=== PATIENT | female | born 1995 | race Caucasian/White ===

== ENCOUNTER 2019-08-12 21:06 | Emergency (ER) | payer MEDICAID ==
[2019-08-12] MEDS ORDERED: Alum Hydrox/Mag Hydrox/Simeth 30 ML, Lidocaine 2% 15 ML PO STA ×2 (21:48)
--- NOTE | 2019-08-12 21:53 | EDM.PDOC ---
ED HPI GENERAL MEDICAL PROBLEM - General Chief Complaint: Chest Pain Stated Complaint: CHEST PAINS, SOB Time Seen by Provider: 08/12/19 21:32 Source of Information: Reports: Patient, Other (Friend of family) History Limitations: Reports: No Limitations - History of Present Illness INITIAL COMMENTS - FREE TEXT/NARRATIVE: Ms. Hernández is a very pleasant 24-year-old woman who states that she has been experiencing recurrent retrosternal chest pain, sharp in character, about once a week since 2010. As a result, she wore a Holter monitor for 2 months in 2018 in [place], then also underwent a 48-hour Holter monitor this past July here in [place]. According the patient, she was found to have episodic sinus tachycardia, and was started on Toprol-XL 25 mg daily. The patient now presents to the ED stating that she developed the same retrosternal chest pain, sudden onset, around 20:10 this evening. She states that her current pain is more severe than usual. She states that it is a pain, not a discomfort. It has been waxing and waning; she notices that the pain improved after she removed her bra, and if she is standing. The pain is made worse if she bends forward or sits. She reports slight shortness of breath since 20:40. No associated nausea, diaphoresis, or sense of impending doom. The patient states that she has had an occasional cough, lightheadedness, and nausea, but she denies recent fever, chills, emesis, constipation, diarrhea, abdominal pain, urinary symptoms, recent weight gain or weight loss, recent bloody bowel movements or black bowel movements, recent joint aches, headaches, or rashes. It is noted that the patient's oxygen saturation is 100% on room air. Her vital signs are otherwise within normal limits; she is not tachycardic The patient's PCP is LEONEL Heaton. She has not received an influenza vaccine this season, but agreed to receive one here. Middle Chest Pain Score (Numeric/FACES): 8 - Related Data Allergies Allergy/AdvReac Type Severity Reaction Status Date / Time adhesive Allergy Rash Verified 08/12/19 21:31 bacitracin Allergy Rash Verified 08/12/19 21:31 [From Neosporin ([id number])] desmopressin Allergy Rash Verified 08/12/19 21:31 hydroxyzine Allergy Hallucinati Verified 08/12/19 21:31 ons latex Allergy Rash Verified 08/12/19 21:31 neomycin Allergy Rash Verified 08/12/19 21:31 [From Neosporin ([id number])] polymyxin B Allergy Rash Verified 08/12/19 21:31 [From Neosporin ([id number])] Home Meds: Home Meds Amitriptyline HCl 75 mg PO DAILY 08/12/19 [History] Cholecalciferol (Vitamin D3) [Vitamin D] 1,000 unit PO DAILY 08/12/19 [History] Loratadine [Claritin] 10 mg PO DAILY 08/12/19 [History] Magnesium 250 mg PO DAILY 08/12/19 [History] Metoprolol Succinate [Toprol XL] 25 mg PO DAILY 08/12/19 [History] [place]-3/DHA/Epa/Fish Oil [Fish Oil 1,000 mg Softgel] 1 each PO DAILY 08/12/19 [ History] metFORMIN [Glucophage XR] 250 mg PO DAILY 08/12/19 [History] Past Medical History HEENT History: Reports: Allergic Rhinitis Cardiovascular History: Reports: High Cholesterol Respiratory History: Reports: Asthma (exercise-induced, suspected, not tested) CHILD SUPPORT AGENT History: Reports: Polycystic Ovaries Musculoskeletal History: Reports: Other (See Below) ([place]-Schlatter) Psychiatric History: Reports: ADHD, Bipolar, Other (See Below) (Insomnia) Endocrine/Metabolic History: Reports: Vitamin D Deficiency Social & Family History - Tobacco Use Smoking Status *Q: Never Smoker - Caffeine Use Caffeine Use: Reports: Coffee - Alcohol Use Alcohol Use History: Yes Alcohol Use Frequency: Rarely - Recreational Drug Use Recreational Drug Use: Yes Drug Use in Last 12 Months: Yes Recreational Drug Type: Reports: Marijuana/Hashish (smokes nightly) - Living Situation & Occupation Living situation: Reports: Single, with Family Occupation: Student ([employer]) ED ROS GENERAL - Review of Systems Review Of Systems: Comprehensive ROS is negative, except as noted in HPI. ED EXAM, GENERAL - Physical Exam Exam: See Below Exam Limited By: No Limitations General Appearance: Alert, Anxious, Thin Eye Exam: Bilateral Eye: EOMI, Normal Inspection Ears: Normal External Exam, Hearing Grossly Normal Nose: Normal Inspection Throat/Mouth: Normal Inspection, Normal Lips, Normal Voice, No Airway Compromise Head: Atraumatic, Normocephalic Neck: Normal Inspection, Full Range of Motion Respiratory/Chest: No Respiratory Distress, Lungs Clear, Normal Breath Sounds, No Accessory Muscle Use, Chest Non-Tender (pain improved with palpation of the sternum) Cardiovascular: Normal Peripheral Pulses, Regular Rate, Rhythm, No Edema, No Gallop, No JVD, No Murmur, No Rub Peripheral Pulses: 4+: Radial (L), Radial (R) GI/Abdominal: Normal Bowel Sounds, Soft, Non-Tender (including in the epigastrium), No Organomegaly, No Distention, No Abnormal Bruit, No Mass (Female) Exam: Normal Bimanual Exam, Deferred Rectal (Female) Exam: Deferred Back Exam: Normal Inspection, Full Range of Motion, NT Extremities: Normal Inspection, Normal Range of Motion, No Pedal Edema, Normal Capillary Refill Neurological: Alert, Oriented, Normal Cognition, No Motor/Sensory Deficits Psychiatric: Anxious Skin Exam: Warm, Dry, Intact, Normal Color, No Rash Course - Vital Signs Last Recorded V/S: Last Vital Signs Temp 36.7 C 08/12/19 21:25 Pulse 98 08/12/19 21:25 Resp 14 08/12/19 21:25 BP 119/82 08/12/19 21:25 Pulse Ox 100 08/12/19 21:25 - Orders/Labs/Meds Orders: Active Orders 24 hr Category Date Time Status Influenza Vaccine Charge [RC] .DISCHARGE Care 08/12/19 23:17 Active Meds: Medications Discontinued Medications Generic Name Dose Route Start Last Admin Trade Name Freq PRN Reason Stop Dose Admin Al Hydroxide/Mg Hydroxide 30 0 ml 08/12/19 21:48 08/12/19 21:50 ml/ Lidocaine HCl 15 ml PO 08/12/19 21:49 45 ml ONETIME STA Administration Famotidine 20 mg 08/12/19 23:14 Pepcid PO 08/12/19 23:15 ONETIME ONE Influenza Virus Vaccine 1 each 08/12/19 23:17 Pharmacy To Dose - Influenza Vaccine IM 08/12/19 23:18 ONETIME ONE Influenza Virus Vaccine 60 mcg 08/12/19 23:30 08/12/19 23:21 Fluzone Quad Syringe IM 08/12/19 23:31 60 mcg .ONCE ONE Administration Influenza Virus Vaccine Confirm 08/12/19 23:20 Fluzone Quad [id number] Syringe Administered 08/12/19 23:21 Dose 60 mcg .ROUTE .[facility] ONE - Re-Assessments/Exams Free Text/Narrative Re-Assessment/Exam: 08/12/19 21:50 The patient's history and physical exam are most consistent with her pain being due to GERD. I have ordered a GI cocktail to see if that helps. 08/12/19 23:14 The patient states that the GI cocktail helped only "a little". Nevertheless, I suspect that her symptoms are due to GERD. She will be started on famotidine, and I will recommend that she start taking one tablet once a day. If her symptoms persist, she should increase her dosage to one tablet twice a day. If her symptoms persist despite taking one tablet of famotidine twice a day, the patient may need to start on a PPI, but under the circumstances, I would want her to undergo an EGD. The patient's oxygen saturation has remained at 100% while on room air during her entire ED visit. I suspect that the patient is suffering from some underlying anxiety, which may also be responsible for her tachycardia. I recommended that the patient follow-up with her PCP to discuss treatment options for anxiety. The patient received that recommendation well, stating that she had previously discussed the issue with her PCP, but that nothing was prescribed. The patient will receive an influenza vaccine prior to discharge. Departure - Departure Time of Disposition: 23:16 Disposition: Home, Self-Care 01 Condition: Good Clinical Impression: GERD (gastroesophageal reflux disease), Anxiety - Discharge Information *PRESCRIPTION DRUG MONITORING PROGRAM REVIEWED*: Not Applicable *COPY OF PRESCRIPTION DRUG MONITORING REPORT IN PATIENT CLEMENCIA: Not Applicable Instructions: Heartburn, [id number] Referrals: Ingrid Montes De Oca PA-C [Primary Care Provider] - Forms: ED Department Discharge Additional Instructions: You were seen in the emergency room for recurrent central chest pain and slight shortness of breath. Based on your history and physical examination, your chest pain is most likely due to GERD. You have been started on the antacid medicine famotidine (Pepcid). Famotidine is available [id number], and generic is just as good as brand name. We recommend that you take one tablet a famotidine once a day. If your chest pain symptoms persist despite taking famotidine once a day, you may increase the dose to one tablet of famotidine twice a day. If your symptoms persist despite taking famotidine twice a day, you may need to which to a stronger antacid, such as a proton pump inhibitor, but if that were the case, we recommend that you undergo an EGD (scope of the stomach). It was noticed that your oxygen saturation was 100% on room air, suggestive of hyperventilation. You may be suffering from untreated anxiety, which may be contributing to your tachycardia. We recommend that you follow-up with your PCP to discuss treatment options for anxiety. If any other problems, please do not hesitate to return to the ER. *You received an influenza vaccine during your ER visit.* - My Orders Last 24 Hours: My Active Orders 08/12/19 23:17 Influenza Vaccine Charge [RC] .DISCHARGE - Assessment/Plan Last 24 Hours: My Active Orders 08/12/19 23:17 Influenza Vaccine Charge [RC] .DISCHARGE
[2019-08-12] MEDS ORDERED: Famotidine 20 MG Tab PO ONE (23:14)
[2019-08-12] MEDS ORDERED: FLU Vacc QS2019-20(6MOS+)/PF 60 MCG/0.5 ML SYRINGE ONE (23:20)
[2019-08-12] MEDS ORDERED: FLU Vacc QS2019-20(6MOS+)/PF 60 MCG/0.5 ML SYRINGE IM ONE (23:30)
== END 2019-08-12 23:52 | disposition home or self-care (01) ==
LOC: JD.ED 21:06
DX: K21.9 Gastro-esophageal reflux disease without esophagitis (principal); F41.9 Anxiety disorder, unspecified; Z91.048 Other nonmedicinal substance allergy status; Z88.1 Allergy status to other antibiotic agents; Z91.040 Latex allergy status; Z88.8 Allergy status to other drugs, medicaments and biological substances; Z88.3 Allergy status to other anti-infective agents; Z23 Encounter for immunization
CPT/HCPCS: 90471; 90686; 99284; A9270; 99283; G0008

== ENCOUNTER 2019-08-24 13:43 | Emergency (ER) | payer MEDICAID, OTHER ==
[2019-08-24] MEDS ORDERED: Sodium Chloride 0.9% 10 ML Syringe FLUSH PRN (13:55)
[2019-08-24] MEDS ORDERED: Sodium Chloride 0.9% 1,000 ML IV ONE (13:55)
[2019-08-24] MEDS ORDERED: Metoclopramide 10 MG/2 ML SDV IVPUSH ONE (13:55)
[2019-08-24] MEDS ORDERED: diphenhydrAMINE 50 MG/ML SDV IVPUSH ONE (13:55)
--- NOTE | 2019-08-24 14:01 | EDM.PDOC ---
ED HPI GENERAL MEDICAL PROBLEM - General Chief Complaint: Headache Stated Complaint: HEADACHE/NECK PAIN Time Seen by Provider: 08/24/19 13:49 Source of Information: Reports: Patient History Limitations: Reports: No Limitations - History of Present Illness INITIAL COMMENTS - FREE TEXT/NARRATIVE: Patient is an unfortunate 24-year-old female who presents emergency Department today with complaint of headache. Patient reports onset of health approximately one week ago when she started getting a dull throbbing frontal headache. Patient reports that this headache has not been alleviated by any over -the-counter medication she's been taking ibuprofen at home with no improvement in symptoms. Positive nausea positive photophobia and no vomiting. Patient reports she was seen in urgent care today and was sent to the emergency department for evaluation. I reviewed the urgent care notes patient had labs drawn there which showed no clinically significant abnormalities and the patient was sent here to rule out meningitis. Patient has no nuchal rigidity no fever. - Related Data Allergies Allergy/AdvReac Type Severity Reaction Status Date / Time adhesive Allergy Rash Verified 08/12/19 21:31 bacitracin Allergy Rash Verified 08/12/19 21:31 [From Neosporin ([id number])] desmopressin Allergy Rash Verified 08/12/19 21:31 hydroxyzine Allergy Hallucinati Verified 08/12/19 21:31 ons latex Allergy Rash Verified 08/12/19 21:31 neomycin Allergy Rash Verified 08/12/19 21:31 [From Neosporin ([id number]-[id number])] polymyxin B Allergy Rash Verified 08/12/19 21:31 [From Neosporin ([id number]-[id number])] Home Meds: Home Meds Amitriptyline HCl 75 mg PO DAILY 08/12/19 [History] Cholecalciferol (Vitamin D3) [Vitamin D] 1,000 unit PO DAILY 08/12/19 [History] Loratadine [Claritin] 10 mg PO DAILY 08/12/19 [History] Magnesium 250 mg PO DAILY 08/12/19 [History] Metoprolol Succinate [Toprol XL] 25 mg PO DAILY 08/12/19 [History] [place]-3/DHA/Epa/Fish Oil [Fish Oil 1,000 mg Softgel] 1 each PO DAILY 08/12/19 [ History] metFORMIN [Glucophage XR] 250 mg PO DAILY 08/12/19 [History] Past Medical History HEENT History: Reports: Allergic Rhinitis Cardiovascular History: Reports: High Cholesterol, Other (See Below) Other Cardiovascular History: high heart rate Respiratory History: Reports: Asthma STRATEGIC BUSINESS DEVELOPMENT History: Reports: Polycystic Ovaries Musculoskeletal History: Reports: Other (See Below) Neurological History: Reports: Head Trauma, Other (See Below) Other Neuro History: TBI Psychiatric History: Reports: ADHD, Bipolar, Other (See Below) Endocrine/Metabolic History: Reports: Vitamin D Deficiency Social & Family History - Tobacco Use Smoking Status *Q: Never Smoker Second Hand Smoke Exposure: No - Caffeine Use Caffeine Use: Reports: None - Recreational Drug Use Recreational Drug Use: Yes Drug Use in Last 12 Months: Yes Recreational Drug Type: Reports: Marijuana/Hashish Recreational Drug Use Frequency: Daily - Living Situation & Occupation Living situation: Reports: Single, with Family Occupation: Student ([employer]) ED ROS GENERAL - Review of Systems Review Of Systems: See Below Constitutional: Denies: Fever, Chills, Night Sweats HEENT: Denies: Rhinitis Respiratory: Denies: Cough GI/Abdominal: Reports: Nausea. Denies: Hematemesis, Hematochezia, Vomiting Neurological: Reports: Headache - Physical Exam Exam: See Below Exam Limited By: No Limitations General Appearance: Alert, WD/WN, Mild Distress Eye Exam: Bilateral Eye: Abnormal Pupil, PERRL Ears: Normal External Exam, Normal Canal, Hearing Grossly Normal, Normal TMs Nose: Normal Inspection, Normal Mucosa, No Blood Throat/Mouth: Normal Inspection, Normal Lips, Normal Teeth, Normal Gums, Normal Oropharynx, Normal Voice, No Airway Compromise Head Exam: Atraumatic Neck: Normal Inspection, Supple, Non-Tender, Full Range of Motion, Other (No nuchal rigidity) Respiratory/Chest: No Respiratory Distress, Lungs Clear, Normal Breath Sounds, No Accessory Muscle Use, Chest Non-Tender Cardiovascular: Normal Peripheral Pulses, No Edema, No Gallop, No JVD, No Murmur , No Rub, Tachycardia GI/Abdominal: Normal Bowel Sounds, Soft, Non-Tender, No Organomegaly, No Distention, No Abnormal Bruit, No Mass Neuro Exam (Abbreviated): Alert, Oriented, CN II-XII Intact, Normal Cognition, Normal Gait, Normal Reflexes, No Motor/Sensory Deficits Extremities: Normal Inspection, Normal Range of Motion, Non-Tender, No Pedal Edema, Normal Capillary Refill Skin Exam: Warm, Dry, No Rash Course - Vital Signs Last Recorded V/S: Last Vital Signs Temp 97.1 F 08/24/19 13:48 Pulse 105 H 08/24/19 13:48 Resp 18 08/24/19 13:48 BP 95/71 08/24/19 13:48 Pulse Ox 100 08/24/19 13:48 - Orders/Labs/Meds Orders: Active Orders 24 hr Category Date Time Status Head wo Cont [CT] Stat Exams 08/24/19 13:55 Taken Sodium Chloride 0.9% [Saline Flush] Med 08/24/19 13:55 Active 10 ml FLUSH ASDIRECTED PRN Saline Lock Insert [OM.PC] Stat Oth 08/24/19 13:55 Ordered Medication Orders Sodium Chloride (Saline Flush) 10 ml FLUSH ASDIRECTED PRN PRN Reason: Keep Vein Open Last Admin: 08/24/19 14:10 Dose: 10 ml Meds: Medications Generic Name Dose Route Start Last Admin Trade Name Freq PRN Reason Stop Dose Admin Sodium Chloride 10 ml 08/24/19 13:55 08/24/19 14:10 Saline Flush FLUSH 10 ml ASDIRECTED PRN Administration Keep Vein Open Discontinued Medications Generic Name Dose Route Start Last Admin Trade Name Freq PRN Reason Stop Dose Admin Diphenhydramine HCl 25 mg 08/24/19 13:55 08/24/19 14:08 Benadryl IVPUSH 08/24/19 13:56 25 mg ONETIME ONE Administration Sodium Chloride 1,000 mls @ 1,000 mls/hr 08/24/19 13:55 08/24/19 14:07 Normal Saline IV 08/24/19 14:54 1,000 mls/hr ONETIME ONE Administration Metoclopramide HCl 10 mg 08/24/19 13:55 08/24/19 14:07 Reglan IVPUSH 08/24/19 13:56 10 mg ONETIME ONE Administration - Re-Assessments/Exams Free Text/Narrative Re-Assessment/Exam: 08/24/19 15:14 CT had "impression: No acute intracranial pathology." Free Text/Narrative Re-Assessment/Exam: 08/24/19 15:16 Pain has resolved will discharge to home Departure - Departure Time of Disposition: 15:16 Disposition: Home, Self-Care 01 Clinical Impression: Migraine - Discharge Information Referrals: Ingrid Montes De Oca PA-C [Primary Care Provider] - Forms: ED Department Discharge Additional Instructions: Home, rest in a dark quiet room, return as needed for worsening condition Sepsis Event Note - Evaluation Sepsis Screening Result: No Definite Risk - Focused Exam Vital Signs: Vital Signs Temp Pulse Resp BP Pulse Ox 08/24/19 13:48 97.1 F 105 H 18 95/71 100 Date Exam was Performed: 08/24/19 Time Exam was Performed: 15:14 - My Orders Last 24 Hours: My Active Orders 08/24/19 13:55 Head wo Cont [CT] Stat Sodium Chloride 0.9% [Saline Flush] 10 ml FLUSH ASDIRECTED PRN Saline Lock Insert [OM.PC] Stat - Assessment/Plan Last 24 Hours: My Active Orders 08/24/19 13:55 Head wo Cont [CT] Stat Sodium Chloride 0.9% [Saline Flush] 10 ml FLUSH ASDIRECTED PRN Saline Lock Insert [OM.PC] Stat
--- NOTE | 2019-08-26 09:16 | CT ---
Head CT Technique: Multiple axial sections through the brain were obtained. Intravenous contrast was not utilized. Comparison: No prior intracranial imaging. Findings: Ventricles along with basal cisterns and sulci over the convexities appear within normal limits for the patient's age. No abnormal parenchymal densities are seen. No evidence of intracranial hemorrhage. No midline shift or mass effect is seen. Mastoid sinuses are clear. Visualized paranasal sinuses are clear. No acute calvarial abnormality is identified. Impression: 1. Nothing acute is appreciated on noncontrast head CT exam. Diagnostic code #2 This report was dictated in [place] Standard Time I agree with preliminary report issued by [facility] ([facility] report finalized on 08/24/19, 3:44 PM Central Time)
== END 2019-08-24 15:31 | disposition home or self-care (01) ==
LOC: JD.ED 13:43
DX: G43.909 Migraine, unspecified, not intractable, without status migrainosus (principal); E28.2 Polycystic ovarian syndrome; Z79.84 Long term (current) use of oral hypoglycemic drugs; Z79.899 Other long term (current) drug therapy; Z91.040 Latex allergy status; Z91.09 Other allergy status, other than to drugs and biological substances; Z88.8 Allergy status to other drugs, medicaments and biological substances
CPT/HCPCS: 70450; 96361; 96374; 96375; 99284; J1200; J2765; J7030; 99283

== ENCOUNTER 2020-05-06 19:39 | Emergency (ER) | payer MEDICAID ==
[2020-05-06] MEDS ORDERED: Ondansetron 4 MG/2 ML SDV IVPUSH ONE (20:19)
[2020-05-06] MEDS ORDERED: methylPREDNISolone Sodium Succinate 125 MG/2 ML SDV IVPUSH ONE (20:19)
--- NOTE | 2020-05-06 20:30 | EDM.PDOC ---
ED HPI GENERAL MEDICAL PROBLEM - General Chief Complaint: Neuro Symptoms/Deficits Stated Complaint: dizzy nausea Time Seen by Provider: 05/06/20 20:00 Source of Information: Reports: Patient, RN Notes Reviewed - History of Present Illness INITIAL COMMENTS - FREE TEXT/NARRATIVE: 25 yr old female with onset of vertigo this afternoon about 5 hrs ago. She has been feeling fine earlier today. She has had episodes of vertigo over the past couple of yrs but less severe. No [place], ear pain, sinus problems, recent cough, fever or chills. It feels better to lie still, worse to move. Nausea but no vomiting. - Related Data Allergies Allergy/AdvReac Type Severity Reaction Status Date / Time adhesive Allergy Rash Verified 05/06/20 20:04 bacitracin Allergy Rash Verified 05/06/20 20:04 [From Neosporin ([id number])] desmopressin Allergy Rash Verified 05/06/20 20:04 hydroxyzine Allergy Hallucinati Verified 05/06/20 20:04 ons latex Allergy Rash Verified 05/06/20 20:04 neomycin Allergy Rash Verified 05/06/20 20:04 [From Neosporin ([id number])] polymyxin B Allergy Rash Verified 05/06/20 20:04 [From Neosporin ([id number])] Home Meds: Home Meds Amitriptyline HCl 75 mg PO DAILY 08/12/19 [History] Cholecalciferol (Vitamin D3) [Vitamin D] 1,000 unit PO DAILY 08/12/19 [History] Loratadine [Claritin] 10 mg PO DAILY 08/12/19 [History] Magnesium 250 mg PO DAILY 08/12/19 [History] Metoprolol Succinate [Toprol XL] 25 mg PO DAILY 08/12/19 [History] [place]-3/DHA/Epa/Fish Oil [Fish Oil 1,000 mg Softgel] 1 each PO DAILY 08/12/19 [History] metFORMIN [Glucophage XR] 250 mg PO DAILY 08/12/19 [History] Meclizine [Antivert] 12.5 mg PO BID #10 tab 05/06/20 [Rx] Past Medical History HEENT History: Reports: Allergic Rhinitis Cardiovascular History: Reports: High Cholesterol, Other (See Below) Other Cardiovascular History: high heart rate Respiratory History: Reports: Asthma VETERINARIAN SMALL ANIMAL History: Reports: Polycystic Ovaries Musculoskeletal History: Reports: Other (See Below) Neurological History: Reports: Head Trauma, Other (See Below) Other Neuro History: TBI Psychiatric History: Reports: ADHD, Bipolar, Other (See Below) Endocrine/Metabolic History: Reports: Vitamin D Deficiency Social & Family History - Tobacco Use Smoking Status *Q: Current Every Day Smoker Years of Tobacco use: 3 Packs/Tins Daily: 0.1 - Caffeine Use Caffeine Use: Reports: None - Recreational Drug Use Recreational Drug Type: Reports: Marijuana/Hashish - Living Situation & Occupation Living situation: Reports: Single, with Family Occupation: Student ([employer]) ED ROS GENERAL - Review of Systems Review Of Systems: See Below Constitutional: Denies: Fever, Chills HEENT: Denies: Ear Discharge, Ear Pain Respiratory: Denies: Shortness of Breath, Cough Cardiovascular: Denies: Chest Pain GI/Abdominal: Reports: Nausea. Denies: Abdominal Pain, Vomiting Musculoskeletal: Reports: No Symptoms Skin: Reports: No Symptoms Neurological: Reports: Dizziness. Denies: Headache, Numbness, Tingling, Trouble Speaking, Weakness ED EXAM, NEURO - Physical Exam Exam: See Below General Appearance: Alert, No Apparent Distress Eye Exam: Bilateral Eye: Nystagmus (mild horizontal), PERRL Ears: Normal External Exam, Normal Canal, Normal TMs Head Exam: Atraumatic Respiratory/Chest: No Respiratory Distress, Lungs Clear, Normal Breath Sounds Cardiovascular: Regular Rate, Rhythm Neurological: Alert, No Motor/Sensory Deficits, Other (finger to nose testing nl) Extremities: Normal Inspection, Normal Range of Motion Skin Exam: Warm, Dry, Normal Color Course - Vital Signs Last Recorded V/S: Last Vital Signs Temp 98.2 F 05/06/20 20:01 Pulse 95 05/06/20 20:01 Resp 16 05/06/20 20:01 BP 110/76 05/06/20 20:01 Pulse Ox 100 05/06/20 20:01 - Orders/Labs/Meds Meds: Medications Discontinued Medications Generic Name Dose Route Start Last Admin Trade Name Raúlq PRN Reason Stop Dose Admin Diazepam 2 mg 05/06/20 20:20 05/06/20 20:31 Valium IVPUSH 05/06/20 20:21 2 mg ONETIME ONE Administration Meclizine HCl 12.5 mg 05/06/20 21:27 05/06/20 21:31 Antivert PO 05/06/20 21:28 12.5 mg ONETIME ONE Administration Methylprednisolone Sodium Succinate 125 mg 05/06/20 20:19 05/06/20 20:31 Solu-Medrol IVPUSH 05/06/20 20:20 125 mg ONETIME ONE Administration Ondansetron HCl 4 mg 05/06/20 20:19 05/06/20 20:31 Zofran IVPUSH 05/06/20 20:20 4 mg ONETIME ONE Administration - Re-Assessments/Exams Free Text/Narrative Re-Assessment/Exam: 05/07/20 11:27 Was feeling better after initial meds, she did have an MRI last winter so will hold off on that for now, discharge instr. as documented. Departure - Departure Time of Disposition: 21:29 Disposition: Home, Self-Care 01 Condition: Fair Clinical Impression: Vertigo - Discharge Information Prescriptions: Meclizine [Antivert] 12.5 mg PO BID #10 tab Instructions: Dizziness, [id number] Referrals: Ingrid Montes De Oca PA-C [Primary Care Provider] - Forms: ED Department Discharge Additional Instructions: Rest. Move slowly and carefully as discussed. Antivert 12.5 mg twice daily as needed for vertigo. Try see Ingrid at the clinic this Monday or early next torres martinez for follow up. Call for appt. in AM. Return to ED as needed if symptoms worsening in any way. Sepsis Event Note (ED) - Evaluation Sepsis Screening Result: No Definite Risk
[2020-05-06] MEDS ORDERED: Meclizine 12.5 MG Tab PO ONE (21:27)
== END 2020-05-06 22:13 | disposition home or self-care (01) ==
LOC: JD.ED 19:39
DX: R42 Dizziness and giddiness (principal); J45.909 Unspecified asthma, uncomplicated; F17.210 Nicotine dependence, cigarettes, uncomplicated; Z91.048 Other nonmedicinal substance allergy status; Z88.1 Allergy status to other antibiotic agents; Z91.040 Latex allergy status; Z88.5 Allergy status to narcotic agent
CPT/HCPCS: 96374; 96375; 99283; A9270; J2405; J2930; J3360

== ENCOUNTER 2021-06-12 13:13 | Emergency (ER) | payer MEDICAID ==
[2021-06-12] MEDS ORDERED: Ketorolac 30 MG/ML SDV IVPUSH ONE (13:51)
[2021-06-12] MEDS ORDERED: Ondansetron 4 MG/2 ML SDV IVPUSH ONE (13:51)
[2021-06-12] MEDS ORDERED: Sodium Chloride 0.9% 1,000 ML IV ONE (13:51)
--- NOTE | 2021-06-12 14:16 | EDM.PDOC ---
ED HPI GENERAL MEDICAL PROBLEM - General Chief Complaint: Headache Stated Complaint: DIZZY HEADACHES Time Seen by Provider: 06/12/21 13:22 Source of Information: Reports: Patient History Limitations: Reports: No Limitations, Other (ED vital signs reveal a temp of 98 1, pulse of 111, respiratory rate not recorded, blood pressure 119/78, pulse ox 100% on room air) - History of Present Illness INITIAL COMMENTS - FREE TEXT/NARRATIVE: 26-year-old female presents the emergency department today with complaints of a migraine headache. Patient states she does have a history of migraine headache for the past 7 years or so. She states that the headache started yesterday. Primary area of pain is located in the frontal area. She does have photophobia and phonophobia. She denies any aura associated with her migraine headaches. She denies any blurred vision, double vision or numbness or tingling. She does however report some dizziness associated with her headache. She states she woke this morning and headache was more severe than yesterday when it started so she did take 7 Excedrin tabs which did not seem to help. She states her primary care provider is Ingrid Montes De Oca, and she has tried several prescription migraine medications in the past however none seem to work for her. She denies any nausea or vomiting associated with the headache. She denies any recent fever, chills, sore throat cough or diarrhea. Treatments [employer]: Reports: Other (see below) Other Treatments [employer]: excedrin Headache Pain Score (Numeric/FACES): 10 - Related Data Allergies Allergy/AdvReac Type Severity Reaction Status Date / Time polymyxin B Allergy Severe Rash Verified 06/12/21 13:53 [From Neosporin ([id number])] adhesive Allergy Rash Verified 06/12/21 13:53 bacitracin Allergy Rash Verified 06/12/21 13:53 [From Neosporin ([id number])] desmopressin Allergy Rash Verified 06/12/21 13:53 hydroxyzine Allergy Hallucinati Verified 06/12/21 13:53 ons latex Allergy Rash Verified 06/12/21 13:53 neomycin Allergy Rash Verified 06/12/21 13:53 [From Neosporin ([id number])] Home Meds: Home Meds Amitriptyline HCl 75 mg PO DAILY 08/12/19 [History] Loratadine [Claritin] 10 mg PO DAILY PRN 08/12/19 [History] Magnesium 250 mg PO DAILY 08/12/19 [History] Meclizine [Antivert] 12.5 mg PO BID #10 tab 05/06/20 [Rx] Past Medical History HEENT History: Reports: Allergic Rhinitis Cardiovascular History: Reports: High Cholesterol, Other (See Below) Other Cardiovascular History: high heart rate Respiratory History: Reports: Asthma NOTCHER History: Reports: Polycystic Ovaries Musculoskeletal History: Reports: Other (See Below) Neurological History: Reports: Head Trauma, Other (See Below) Other Neuro History: TBI- 2017 thrown off horse Psychiatric History: Reports: ADHD, Bipolar Endocrine/Metabolic History: Reports: Vitamin D Deficiency Social & Family History - Tobacco Use Tobacco Use Status *Q: Never Tobacco User - Caffeine Use Caffeine Use: Reports: None - Recreational Drug Use Recreational Drug Use: Yes Recreational Drug Type: Reports: Marijuana/Hashish Other Recreational Drug Type: at least 5 times per week - Living Situation & Occupation Living situation: Reports: Single, with Family Occupation: Student ([employer]) ED ROS GENERAL - Review of Systems Review Of Systems: Comprehensive ROS is negative, except as noted in HPI. - Physical Exam Exam: See Below Exam Limited By: No Limitations General Appearance: Alert, WD/WN, Mild Distress (Patient is curled up in the position covering her eyes) Eye Exam: Bilateral Eye: EOMI, PERRL Ears: Normal External Exam, Hearing Grossly Normal Nose: Normal Inspection Throat/Mouth: Normal Inspection, Normal Lips, Normal Voice, No Airway Compromise Head Exam: Atraumatic, Normocephalic Neck: Normal Inspection, Supple Respiratory/Chest: No Respiratory Distress, No Accessory Muscle Use Cardiovascular: Normal Peripheral Pulses, Regular Rate, Rhythm GI/Abdominal: No Distention (Female) Exam: Deferred Rectal (Female) Exam: Deferred Neuro Exam (Abbreviated): Alert, Oriented, Normal Cognition Back Exam: Normal Inspection Extremities: Normal Inspection Psychiatric: Normal Affect, Normal Mood Skin Exam: Warm, Dry, Intact, Normal Color, No Rash Course - Vital Signs Text/Narrative:: As stated above, patient presents with a history of migraine headache. She states this started yesterday and has progressively gotten worse. Physical exam is essentially unremarkable. Neuro exam is unremarkable. She does have photophobia and phonophobia. Patient will receive a liter of normal saline as well as Toradol and Zofran. Patient is allergic to antihistamines so Benadryl i s contraindicated at this time as it causes her to have hallucinations. I do not want to try to give the patient Reglan as he may have extrapyramidal side effects. Last Recorded V/S: Last Vital Signs Temp 98.1 F 06/12/21 13:38 Pulse 111 H 06/12/21 13:38 Resp BP 119/78 06/12/21 13:38 Pulse Ox 100 06/12/21 13:38 - Orders/Labs/Meds Meds: Medications Discontinued Medications Generic Name Dose Route Start Last Admin Trade Name Raúlq PRN Reason Stop Dose Admin Diphenhydramine HCl 25 mg 06/12/21 15:42 06/12/21 16:09 Diphenhydramine 50 Mg/Ml Sdv IVPUSH 06/12/21 15:43 25 mg ONETIME ONE Administration Sodium Chloride 1,000 mls @ 999 mls/hr 06/12/21 13:51 06/12/21 14:26 Normal Saline IV 06/12/21 14:51 999 mls/hr ONETIME ONE Administration Ketorolac Tromethamine 30 mg 06/12/21 13:51 06/12/21 14:25 Ketorolac 30 Mg/Ml Sdv IVPUSH 06/12/21 13:52 30 mg ONETIME ONE Administration Metoclopramide HCl 10 mg 06/12/21 15:42 06/12/21 16:09 Metoclopramide 10 Mg/2 Ml Sdv IVPUSH 06/12/21 15:43 10 mg ONETIME ONE Administration Ondansetron HCl 4 mg 06/12/21 13:51 06/12/21 14:26 Ondansetron 4 Mg/2 Ml Sdv IVPUSH 06/12/21 13:52 4 mg ONETIME ONE Administration - Re-Assessments/Exams Free Text/Narrative Re-Assessment/Exam: 06/12/21 15:44 Patient reports that her headache is little better. States it is an 8 out of 10 however she states she is more nauseated at this time. She states she has taken Benadryl safely in the past so we will give her Reglan and Benadryl and see if this helps. 06/12/21 17:11 Patient reports that her nausea has resolved and that her headache is sign ificantly better. She rates it at a 5 out of 10. States she is ready to be discharged home. Departure - Departure Time of Disposition: 17:11 Disposition: Home, Self-Care 01 Condition: Good Clinical Impression: Migraine - Discharge Information Instructions: Migraine Headache, [id number] Referrals: Ingrid Montes De Oca PA-C [Primary Care Provider] - Forms: ED Department Discharge Additional Instructions: You are seen in the emergency department today with complaints of migraine headache that started yesterday. You were given IV fluids and medications to abort the headache and this did seem to help. Recommend that you go home and rest in a dark quiet room. Be sure to drink plenty of fluids. Should your condition worsen or change, do not hesitate returning to the emergency department. Sepsis Event Note (ED) - Focused Exam Vital Signs: Vital Signs Temp Pulse BP Pulse Ox 06/12/21 13:38 98.1 F 111 H 119/78 100
[2021-06-12] MEDS ORDERED: Metoclopramide 10 MG/2 ML SDV IVPUSH ONE (15:42)
[2021-06-12] MEDS ORDERED: diphenhydrAMINE 50 MG/ML SDV IVPUSH ONE (15:42)
== END 2021-06-12 17:32 | disposition home or self-care (01) ==
LOC: JD.ED 13:13
DX: G43.909 Migraine, unspecified, not intractable, without status migrainosus (principal); E78.00 Pure hypercholesterolemia, unspecified; Z88.8 Allergy status to other drugs, medicaments and biological substances; Z88.1 Allergy status to other antibiotic agents; Z91.040 Latex allergy status; Z91.048 Other nonmedicinal substance allergy status; Z79.899 Other long term (current) drug therapy
CPT/HCPCS: 96374; 96375; 99283; J1200; J1885; J2405; J2765; J7030

== ENCOUNTER 2022-10-11 20:52 | Emergency (ER) | payer MEDICAID ==
[2022-10-11] MEDS ORDERED: Sodium Chloride 0.9% 10 ML Syringe FLUSH PRN (21:33)
[2022-10-11] MEDS ORDERED: Sodium Chloride 0.9% 1,000 ML IV ONE ×2 (21:33→22:41)
[2022-10-11] MEDS ORDERED: Ondansetron 4 MG/2 ML SDV IVPUSH ONE (21:33)
[2022-10-11] MEDS ORDERED: Potassium Chloride 20 MEQ Tab.ER PO ONE (22:21)
[2022-10-11] MEDS: Potassium Chloride 10 MEQ in Premix Bag 1 BAG IV SCH ×2 (22:34→23:47)
[2022-10-11] MEDS ORDERED: Loperamide 2 MG Cap PO ONE (23:19)
[2022-10-12] MEDS: Potassium Chloride 10 MEQ in Premix Bag 1 BAG IV SCH ×2 (00:45→01:42)
== END 2022-10-12 03:45 | disposition home or self-care (01) ==
LOC: JD.ED 20:52
DX: A08.4 Viral intestinal infection, unspecified (principal); J45.909 Unspecified asthma, uncomplicated; Z88.8 Allergy status to other drugs, medicaments and biological substances; Z91.048 Other nonmedicinal substance allergy status; Z88.1 Allergy status to other antibiotic agents; Z91.040 Latex allergy status; Z79.899 Other long term (current) drug therapy
CPT/HCPCS: 36415; 80053; 83735; 85025; 96361; 96365; 96366; 96375; 96376; 99284; A9270; J2405; J3480; J3490; J7030; 99283